=== PATIENT | female | born 1985 | race Two or more races ===

== ENCOUNTER 2022-03-07 09:12 | Outpatient (CLI) | payer OTHER | END 2022-03-07 09:25 | disposition home or self-care (01) | LOC: RX STUDY 09:12 | PROVIDERS: ATTEND Obstetrics & Gynecology Gynecology | DX: N70.11 Chronic salpingitis (principal) ==

== ENCOUNTER 2024-01-26 11:52 | Outpatient (CLI) | payer OTHER | END 2024-01-26 13:04 | disposition home or self-care (01) | LOC: NST 11:52 | PROVIDERS: ATTEND Obstetrics & Gynecology Maternal & Fetal Medicine | DX: Z34.83 Encounter for supervision of other normal pregnancy, third trimester (principal) ==

== ENCOUNTER 2024-01-27 08:29 | Outpatient (CLI) | payer OTHER | END 2024-01-27 09:56 | disposition home or self-care (01) | LOC: NST 08:29 | PROVIDERS: ATTEND Obstetrics & Gynecology Maternal & Fetal Medicine | DX: Z34.83 Encounter for supervision of other normal pregnancy, third trimester (principal) ==

== ENCOUNTER 2024-03-09 14:15 | Inpatient (IN) | payer OTHER ==
[~2024-03-09] VITALS: Ht 149.9 cm; Wt 2.3 kg
[2024-03-10] MEDS ORDERED: PRENATABS RX T1 EACH PO (22:24)
[2024-03-10] MEDS ORDERED: RINGERS SOLUTION,LACTATED 1,000 ML IV SCH (22:30)
[2024-03-10] MEDS ORDERED: MORPHINE SULFATE 4 MG/ML CARTRIDGE IV PRN (22:30)
[2024-03-10 23:12] LABS: MEAN CELL VOLUME 82.6 fL (80.00-100.00); PLATELET COUNT 227 K/uL (150-450); RED BLOOD COUNT 4.24 M/uL (4.00-6.00); RED CELL DISTRIBUTION WIDTH 15.7 % (11.5-14.5)
[2024-03-10 23:13] LABS: HEMOGLOBIN 11.9 g/dL (12.0-15.00)
[2024-03-10 23:18] LABS: INR < 0.93; PARTIAL THROMBOPLASTIN TIME 25.9 SECONDS (22.0-34.0); PROTHROMBIN TIME 9.5 SECONDS (9.0-11.5)
[2024-03-10 23:24] LABS: ALBUMIN 2.7 gm/dL (3.4-5.0); BILIRUBIN TOTAL 0.47 mg/dL (0.3-1.2); CALCIUM 9.1 mg/dL (8.5-10.1); CREATININE SERUM 0.94 mg/dL (0.55-1.02); GFR 66.64; GLOBULINA 3.3 G/DL (2.4-3.5); POTASSIUM 3.97 mEq/L (3.5-5.1)
[2024-03-11] MEDS ORDERED: OXYTOCIN 20 UNITS/1000ML RL PIGGYBAG IV ONE (01:37)
[2024-03-11] MEDS ORDERED: CHLORHEXIDINE GLUCONATE 120 ML BOTTLE TOP ONE (01:37)
[2024-03-11] MEDS ORDERED: ERYTHROMYCIN BASE 1 GM TUBE OP ONE (01:37)
[2024-03-11] MEDS ORDERED: CITRIC ACID/SODIUM CITRATE 30 ML BLIST.PACK PO ONE ×2 (05:17→06:00)
[2024-03-11] MEDS ORDERED: OXYTOCIN 10 UNITS/ML VIAL ONE (05:32)
[2024-03-11] MEDS ORDERED: ERYTHROMYCIN BASE 3.5 GM OINT...G. OP ONE (05:32)
[2024-03-11] MEDS ORDERED: CEFAZOLIN SODIUM 1,000 MG VIAL IV SCH (06:00)
[2024-03-11] MEDS ORDERED: MORPHINE SULFATE 4 MG/ML CARTRIDGE IV SCH (06:24)
[2024-03-11] MEDS ORDERED: KETOROLAC TROMETHAMINE 30 MG VIAL IV SCH (06:28)
[2024-03-11 08:18] LABS: ABG PH 7.286 (7.35-7.45); ABG pCO2 49.7 mmHg (35-45)
[2024-03-11 08:19] LABS: BASE EXCESS -3.9 mmol/l; BICARBONATE 23.1 mmol/l (23-25); SaO2 25.6 %; Tco2 24.7 mmol/l; o2 21 %
[2024-03-11 08:20] LABS: ABG PO2 20.5 mmHg (80-100)
[2024-03-11] MEDS ORDERED: KETOROLAC TROMETHAMINE 30 MG VIAL ONE (08:35)
[2024-03-11] MEDS ORDERED: DOCUSATE SODIUM 100MG CAP PO SCH (09:00)
[2024-03-11] MEDS ORDERED: SIMETHICONE 125 MG CAPSULE PO SCH (09:00)
[2024-03-11] MEDS ORDERED: PNV,CALCIUM 72/IRON/FOLIC ACID 1 TAB TABLET PO SCH (09:00)
[2024-03-11 19:11] LABS: HEMATOCRIT 27.1 % (36.0-45.00); MEAN CELL VOLUME 82.3 fL (80.00-100.00); MEAN CORPUSCULAR HGB CONC 33.4 g/dl (32.0-36.0); PLATELET COUNT 178 K/uL (150-450); RED BLOOD COUNT 3.29 M/uL (4.00-6.00)
[2024-03-11 19:12] LABS: HEMOGLOBIN 9.1 g/dL (12.0-15.00); MEAN CORPUSCULAR HEMOGLOBIN 27.6 pg (27.00-32.0)
[2024-03-12] MEDS ORDERED: IBUprofen 600 MG TABLET PO SCH
[2024-03-12] MEDS ORDERED: ACETAMINOPHEN 500 MG GEL..CAP PO SCH
[2024-03-12] MEDS ORDERED: GABAPENTIN 300 MG CAPSULE PO SCH (01:00)
[2024-03-12] MEDS ORDERED: OxyCODONE HCL/APAP UD (PERCOCET) PO SCH (09:00)
[2024-03-12] MEDS ORDERED: IRON FUM,PS/FOLIC/BCOMP,C NO.9 1 CAP CAPSULE PO SCH (09:00)
[2024-03-12] MEDS ORDERED: METOCLOPRAMIDE HCL 5 MG/ML VIAL IV SCH (09:10)
[2024-03-12] MEDS ORDERED: MISOPROSTOL 100 MCG TABLET PO ONE (09:15)
[2024-03-12] MEDS ORDERED: KETOROLAC TROMETHAMINE 10 MG TABLET PO SCH (12:00)
[2024-03-12] MEDS ORDERED: METOCLOPRAMIDE HCL 10 MG TABLET PO SCH (14:16)
[2024-03-13 08:17] LABS: HEMATOCRIT 26.3 % (36.0-45.00); MEAN CELL VOLUME 83.9 fL (80.00-100.00); MEAN CORPUSCULAR HGB CONC 33.6 g/dl (32.0-36.0); PLATELET COUNT 195 K/uL (150-450); RED BLOOD COUNT 3.13 M/uL (4.00-6.00); RED CELL DISTRIBUTION WIDTH 15.7 % (11.5-14.5)
[2024-03-13 08:20] LABS: HEMOGLOBIN 8.8 g/dL (12.0-15.00); MEAN CORPUSCULAR HEMOGLOBIN 28.1 pg (27.00-32.0)
[2024-03-13 08:38] LABS: ALBUMIN 1.8 gm/dL (3.4-5.0); BILIRUBIN TOTAL 0.34 mg/dL (0.3-1.2); CALCIUM 7.9 mg/dL (8.5-10.1); CREATININE SERUM 0.6 mg/dL (0.55-1.02); GFR 111.88; GLOBULINA 2.8 G/DL (2.4-3.5); POTASSIUM 4.08 mEq/L (3.5-5.1); TOTAL PROTEIN 4.6 gm/dL (6.4-8.2)
== END 2024-03-13 13:41 | disposition home or self-care (01) | DRG 788 ==
LOC: LDR 03-10 22:17 → O/R 03-11 07:59 → OB/GYN 03-11 08:05
PROVIDERS: Obstetrics & Gynecology Gynecology; ADMIT Obstetrics & Gynecology; ATTEND Obstetrics & Gynecology
PROC: 4A1HXCZ Monitoring of Products of Conception, Cardiac Rate, External Approach (ICD-10-PCS; 2024-03-10)
PROC: 10D00Z1 Extraction of Products of Conception, Low, Open Approach (ICD-10-PCS; principal; 2024-03-11 07:00)
DX: O82 Encounter for cesarean delivery without indication (principal); O62.1 Secondary uterine inertia; Z3A.39 39 weeks gestation of pregnancy; Z37.0 Single live birth; Z20.822 Contact with and (suspected) exposure to COVID-19